=== PATIENT | male | born 1950 | race Two or more races ===

== ENCOUNTER 2019-03-14 07:35 | Outpatient (CLI) | payer OTHER | END 2019-03-14 07:40 | disposition home or self-care (01) | LOC: SONOGRAMA 07:35 | DX: E04.1 Nontoxic single thyroid nodule (principal) ==

== ENCOUNTER 2019-03-23 11:08 | Outpatient (CLI) | payer OTHER | END 2019-03-23 11:12 | disposition home or self-care (01) | LOC: NUCLEAR 11:08 | DX: R41.3 Other amnesia (principal) | CPT/HCPCS: 78607; A9557 ==